=== PATIENT | male | born 1940 | race Caucasian/White ===

== ENCOUNTER → 2016-07-15 | Outpatient (CLI) | payer OTHER ==
--- NOTE | ~2016-07-15 | SLE ---
[facility] [address] [place] [address] POLYSOMNOGRAPHY STUDY Name: NORBERTO BRADEN Room #: REG TOYAEric Foster#: [id number] Admission: 07/15/16 Attend Phys: Elizabeth Ellis MD Discharge: Date of : 38 Report #: [id number] THIS REPORT FOR: //name// CC: Elizabeth Nova The patient with history of obstructive sleep apnea. In April 2012, was found to have an AHI of 30 events per sleep hour, CPAP intolerance, IPAP of 16 and EPAP of 9 was suggested. He has not been doing well with his BiPAP machine with AHI of 9.2 on IPAP of 20 and EPAP of 14. COMMENTS: The patient was titrated an IPAP of 14, EPAP of 8; IPAP of 15, EPAP of 9; IPAP of 16, EPAP of 10; IPAP of 17, EPAP of 10; IPAP of 18, EPAP of 11; IPAP of 19, EPAP of 11 with 1 liter oxygen. At an IPAP of 19, EPAP of 11 with 1 liter O2, the patient was seen for 29 minutes of which 27 minutes was in REM sleep. There were 6 hypopneas, apnea/hypopnea index of 12.3 events per hour, low sat of 75%. IMPRESSION: 1. History of obstructive sleep apnea, intolerant to CPAP, currently on IPAP of 20 and EPAP of 14. 2. Central apneas were noted during the night and may need to consider a BiPAP S/T or an AVAP. Occasional premature ventricular contraction noted. 3. BiPAP improved AHI; however, did not totally correct and an O2 was added. SUGGESTIONS: 1. The usual sleep apnea suggestions recommended. 2. The patient should be cautioned regarding the use of respiratory depressants. 3. Further evaluation of cough, which occurred throughout the night. 4. A BiPAP setting of IPAP of 20 and EPAP of 11 with 1 liter O2 is initially recommended. During our study, an Sandrine full face large mask was used with heated humidity. 5. Consider a nocturnal desaturation study, on settings. 6. Again, may need to consider a BiPAP S/T or an AVAP in future. <ELECTRONICALLY SIGNED> By: Elizabeth Ellis MD 08/01/16 [id number] Elizabeth Ellis MD /nt
== END ==
LOC: SLEEPLAB 09:30
DX: G47.33 Obstructive sleep apnea (adult) (pediatric) (principal)

== ENCOUNTER → 2016-09-23 | Outpatient (CLI) | payer OTHER | LOC: RAD 11:47 | DX: J90 Pleural effusion, not elsewhere classified (principal); G47.30 Sleep apnea, unspecified; R06.02 Shortness of breath; I51.7 Cardiomegaly; R91.8 Other nonspecific abnormal finding of lung field ==

== ENCOUNTER → 2016-10-04 | Outpatient (CLI) | payer OTHER ==
[2016-10-04 10:09] LABS: CREATININE 1.3 mg/dL (0.7-1.3)
== END ==
LOC: LAB 09:24
PROVIDERS: Internal Medicine Pulmonary Disease
DX: G47.33 Obstructive sleep apnea (adult) (pediatric) (principal); I25.10 Atherosclerotic heart disease of native coronary artery without angina pectoris; M25.78 Osteophyte, vertebrae; K44.9 Diaphragmatic hernia without obstruction or gangrene; K76.0 Fatty (change of) liver, not elsewhere classified

== ENCOUNTER → 2017-07-22 | Outpatient (CLI) | payer OTHER ==
[~2017-07-22] MED LIST: ALLEGRA ALLERGY60 MG PO; AMARYL4 MG PO; AMLODIPINE BESY10 MG PO; AUGMENTIN 500-1 EACH PO; CALCIUM MAGNES1 EAC2 PO; CARVEDILOL12.5 MG PO; COREG6.25 MG PO; FISH OIL 1,001000 M2 PO; IRBESARTAN150 MG PO; JARDIANCE10 MG PO; NORVASC10 MG PO; PLAVIX 75 MG TA75 M1 PO; SYNTHROID88 MCG PO; VITAMIN D1000 UNI2 PO; VITAMINC500 PO; ZOCOR20 MG PO
== END ==
LOC: CAT 09:51
DX: I25.10 Atherosclerotic heart disease of native coronary artery without angina pectoris (principal); J90 Pleural effusion, not elsewhere classified; J98.11 Atelectasis; I51.7 Cardiomegaly; R59.9 Enlarged lymph nodes, unspecified

== ENCOUNTER 2017-07-23 17:05 | Inpatient (IN) | payer OTHER ==
[~2017-07-23] VITALS: Ht 175.3 cm; Wt 84.8 kg
--- NOTE | ~2017-07-23 | HC ---
[facility] [place] [address] [place] [address] CONSULTATION Name: NORBERTO BRADEN JR Room #: 206-P [facility]..#: [id number] Admission: 07/23/17 Attend Phys: Ramon Linares Discharge: 08/02/17 Date of : 38 Report #: [id number] THIS REPORT FOR: //name// CC: Dr. Vickey Nova HISTORY OF PRESENT ILLNESS: This patient is seen in consultation regarding a worsening mild thrombocytopenia and now leukopenia and a mild normochromic normocytic anemia. This 77-year-old white male was admitted with complaints of worsening shortness of breath and the findings of a pleural effusion. He actually undergone a surgical procedure at [facility] last fall for idiopathic pleural effusions with no malignant pathology found at the time of thoracotomy with drainage and lung decortication. During that hospitalization, he was noted to be mildly thrombocytopenic at 115,000 with a white count of 4000. These are similar numbers that were seen on his hospitalization here on transfer. His platelets have not been associated with any untoward bleeding or bruising according to the patient's . He has been anemic in the past and received iron previously, he thinks several years ago. He has had no prior cancer diagnosis or treatment. He has no known exposure to radiation or known toxins. PAST MEDICAL HISTORY: Positive for coronary artery disease and is followed by Dr. Bingham. He has obstructive sleep apnea and is on home CPAP. ALLERGIES: None known. MEDICATIONS: As listed and include Plavix. SOCIAL HISTORY: He is a nonsmoker. FAMILY HISTORY: Negative for known hematologic malignancies. REVIEW OF SYSTEMS: Negative for sweats, chills, fevers or weight loss. He has no known adenopathy or masses. PHYSICAL EXAMINATION: GENERAL: Shows him to be alert. He is sitting up to chair, eating his lunch. Currently afebrile. NECK: Supple. CHEST: Showed decreased breath sounds in the bases. He has previous surgical incisions. CARDIOVASCULAR: Normal S1, S2. ABDOMEN: No organomegaly or mass. EXTREMITIES: No clubbing, cyanosis, edema. [facility] [address] [place] [address] CONSULTATION Name: NORBERTO BRADEN Room #: 206-P [facility] IN .R.#: [id number] Admission: 07/23/17 Attend Phys: Ramon Linares Discharge: 08/02/17 Date of : 38 Report #: [id number] NEUROLOGIC: No focal localizing signs. PSYCHIATRIC: Not agitated or confused. SKIN: Showed normal turgor. There is no evidence of petechiae. LABORATORY DATA: Inpatient labs and records were reviewed. Earlier PT was normal. ASSESSMENT AND PLAN: Worsening thrombocytopenia. PLAN: This may be related to current Lovenox, which I will discontinue and I have ordered a heparin antibody. Iron studies will be performed to evaluate his mild anemia and probable iron deficiency as well as a protein electrophoresis as his total protein is at the upper limits of normal. Obviously all needed medication should be avoided as it is possible they are contributing to this current change in his hemogram. He may also have an element of anemia of chronic disease and can pursue with an erythropoietin level. He currently is not in need of any transfused blood products at this time and would follow with repeat CBC in the morning. Thanks for allowing me to see him in consultation, asking me to participate in his care. <ELECTRONICALLY SIGNED> By: Elise Lu MD 08/15/17 1239 [id number] Elise Lu MD /nt
--- NOTE | ~2017-07-23 | 2DMMODE ---
[facility] [address] [place] [address] 2 D/M-MODE ECHOCARDIOGRAM Name: NORBERTO BRADEN Room #: 206-P [facility] IN ..#: [id number] Admission: 07/23/17 Attend Phys: Ramon Hwang Discharge: Date of : 36 Date of Service: 07/25/17 1108 Report #: [id number] THIS REPORT FOR: //name// APPROVED REPORT Study performed: 07/25/2017 09:12:39 EXAM: Comprehensive 2D, Doppler, and color-flow Echocardiogram Patient Location: Bedside Room #: 206 Status: routine BSA: 2.07 HR: 60 bpm BP: 130/66 mmHg Other Information Study Quality: Good Indications Congestive Heart Failure Diabetes Dyspnea CAD Hypertension/HDD 2D Dimensions RVDd: 42.76 mm LVEF(%): 68.42 (>50%) IVSd: 14.80 (7-11mm) LVOT Diam: 18.63 (18-24mm) LVDd: 46.58 mm PWd: 12.64 (7-11mm) Ascending Ao: 33.89 (22-36mm) LVDs: 28.79 (25-40mm) Aortic Root: 30.09 mm IVC: 24.00 mm Caballero's LVEF: 68.42 % Volumes Left Atrial Volume (Systole) Single Plane 4CH: 78.75 mL Single Plane 2CH: 110.30 mL LA ESV Index: 51.00 mL/m2 Aortic Valve AoV Peak Erik.: 3.44 m/s AO Peak Gr.: 47.28 mmHg LVOT Max P.37 mmHg AO Mean Gr.: 22.86 mmHg LVOT Mean P.91 mmHg AO V2 Mean: 2.23 m/s LVOT Max V: 1.61 m/s AO V2 VTI: 78.53 cm LVOT Mean V: 0.97 m/s [facility] [place] [address] 2 D/M-MODE ECHOCARDIOGRAM Name: NORBERTO BRADEN Room #: 206-P [facility] IN .R.#: [id number] Admission: 07/23/17 Attend Phys: Ramon Hwang Discharge: Date of : 38 Date of Service: 07/25/17 1108 Report #: [id number] EDUAR (VTI): 1.48 cm2 LVOT V1 VTI: 42.68 cm EDUAR Vmax: 1.28 cm2 SV (LVOT): 116.29 mL Mitral Valve E/A Ratio: 1.5 MV Decel. Time: 241.39 ms MV E Max Erik.: 1.58 m/s MV A Erik.: 1.07 m/s MV PHT: 70.00 ms IVRT: 62.28 ms Pulmonary Valve PV Peak Erik.: 1.13 m/s PV Peak Gr.: 5.15 mmHg Pulmonary Vein P Vein S: 0.43 m/s P Vein D: 0.65 m/s P Vein S/D Ratio: 0.66 Tricuspid Valve TR Peak Erik.: 3.40 m/s RAP Estimate: 15.00 mmHg TR Peak Gr.: 46.34 mmHg PA Pressure: 61.00 mmHg Left Ventricle The left ventricle is normal size. There is normal LV segmental wall motion. Mild concentric left ventricular hypertrophy. The left ventricular systolic function is normal. The left ventricular ejection fraction is within the normal range. LVEF is 55-60%. Transmitral Doppler flow pattern suggests restrictive physiology. Right Ventricle Right ventricle is dilated. The right ventricular systolic function is normal. Atria Left atrium is dilated. Right atrium is severely dilated. Aortic Valve Aortic valve is calcified. No aortic regurgitation is present. There is moderate valvular aortic stenosis. Calculated aortic valve area is 1.3 cm2 with maximum pressure gradient of 47 mmHg and mean pressure gradient of 23 mmHg. [facility] [address] [id number] 2 D/M-MODE ECHOCARDIOGRAM Name: NORBERTO BRADEN Room #: 206-P [facility] IN .R.#: [id number] Admission: 07/23/17 Attend Phys: Ramon Hwang Discharge: Date of : 38 Date of Service: 07/25/17 1108 Report #: [id number] Mitral Valve Moderate mitral annular calcification. Mild mitral regurgitation. No evidence of mitral valve stenosis. Tricuspid Valve The tricuspid valve is normal in structure. Moderate tricuspid regurgitation. PAP is estimated at 60 mmHg. Pulmonic Valve The pulmonary valve is normal in structure. Mild pulmonic regurgitation. Great Vessels The aortic root is normal in size. IVC is dilated and collapses <50% with inspiration. Pericardium There is no pericardial effusion. <Conclusion> The left ventricular systolic function is normal. There is normal LV segmental wall motion. LVEF is 55-60%. Both atria are dilated. Aortic valve is calcified, moderate valvular aortic stenosis. Calculated aortic valve area is 1.3 cm2 (maximum pressure gradient of 47 mmHgm, mean pressure gradient of 23 mmHg). Moderate mitral annular calcification. Mild mitral regurgitation. Moderate tricuspid regurgitation. Pulmonary artery pressure estimated at 60 mmHg. There is no pericardial effusion. <ELECTRONICALLY SIGNED> By: Alexi Hall MD, FACC 07/25/17 1108 1108 1108 Alexi Hall MD, FACC /INF
--- NOTE | ~2017-07-23 | D ---
[facility] [place] [address] [place] [address] DISCHARGE SUMMARY Name: NORBERTO BRADEN JR Room #: 206-P [facility] IN ..#: [id number] Admission: 07/23/17 Attend Phys: Ramon Linares Discharge: 08/02/17 Date of : 38 Report #: [id number] THIS REPORT FOR: //name// CC: Ramon Nova DATE OF SERVICE: 08/02/2017 HISTORY OF PRESENT ILLNESS: The patient is a 77-year-old male with complicated past medical history, including pulmonary hypertension, and pleural effusion few months ago, who came to the hospital with progressively worsening shortness of breath. The patient was found to be in respiratory failure, that felt to be multifactorial, including COPD, CHF with diastolic dysfunction, right heart failure, and bilateral pleural effusions. HOSPITALIZATION COURSE: The patient was hospitalized. Change Management Manager was consulted. The patient was initially treated with BiPAP. He was found to have bilateral pleural effusions. The patient had bilateral thoracentesis. Findings were consistent with exudate. He was treated with broad-spectrum antibiotics. The patient's condition slowly improved, and currently his oxygen requirement is 2 liters a day. The patient had cardiac echo, that showed normal ejection fraction, and pulmonary hypertension with pulmonary artery pressure of 47. The patient developed pancytopenia, that is mild. [employer] was consulted. This was felt to be multifactorial, including the patient being on Zosyn as well as Lovenox. Underlying iron deficiency is also a possibility. The patient had workup, result of which is pending. The patient did well on physical therapy. He will be discharged home on supplemental oxygen. Augmentin will be continued for 5 more days. DISCHARGE DIAGNOSES: 1. Acute on chronic respiratory failure, multifactorial, due to chronic obstructive pulmonary disease exacerbation, pneumonia, and bilateral pleural effusion. 2. Pleural effusion, exudate based on thoracentesis. 3. Pancytopenia, mild. Developed during the hospital stay. Multifactorial. Workup is pending. The patient will have followup with inspector elevators. 4. Diabetes mellitus type 2, stable on glimepiride. 5. Hypertension. 6. Obstructive sleep apnea. 7. Chronic obstructive pulmonary disease. 8. Pulmonary hypertension. [facility] [address] [place] [address] DISCHARGE SUMMARY Name: SAMPSONNORBERTO Room #: 206-P [facility] IN [facility].#: [id number] Admission: 07/23/17 Attend Phys: Ramon Linares Discharge: 08/02/17 Date of : 38 Report #: [id number] DISCHARGE MEDICATIONS: Please refer to medication reconciliation list. FOLLOWUP PLAN: 1. Follow up with office rn in 2 weeks as advised. 2. Follow up with inspector elevators in about 2 weeks. 3. Follow up with the primary care physician as planned. I spent more than 30 minutes to coordinate the patient's discharge from the hospital. <ELECTRONICALLY SIGNED> By: August Espinosa MD 08/03/17 0709 [id number] 1104 August Espinosa MD /marisol
--- NOTE | ~2017-07-23 | EKG ---
[address] [place] [address] ELECTROCARDIOGRAM REPORT Name: NORBERTO BRADEN Sabrina Room #: 206-P ADM IN M.R.#: [id number] Admission: 07/23/17 Attend Phys: Ramon Linares Discharge: Date of : 38 Report #: [id number] THIS REPORT FOR: //name// [facility] ED Test Date: 2017-07-23 Test Time: 17:32:17 Pat Name: NORBERTO BRADEN Department: Room: 206 Gender: M [employer] Associate: STEVO : 1940 Requested By: Virginia Le Order Number: [id number] MD: Alexi Hall Measurements Intervals [place] Rate: 79 P: 19 TX: 211 QRS: 33 QRSD: 98 T: 10 QT: 414 QTc: 475 Interpretive Statements Sinus rhythm No significant abnormality No previous ECG available for comparison Electronically Signed On 07-24-2017 11:28:04 [employer]PA[employer] by Alexi Hall [email or web address] <ELECTRONICALLY SIGNED> By: Alexi Hall MD, [facility] 07/24/17 1128 1732 1732 Alexi Hall MD, FACC /EPI
--- NOTE | ~2017-07-23 | HC ---
[facility] [address] [place] [address] CONSULTATION Name: NORBERTO BRADEN JR Room #: 206-P [facility] IN M.R.#: [id number] Admission: 07/23/17 Attend Phys: Ramon Linares Discharge: Date of : 38 Report #: [id number] THIS REPORT FOR: //name// CC: Ramon Nova REASON FOR CONSULTATION: Shortness of breath. HISTORY OF PRESENT ILLNESS: The patient is a 77-year-old gentleman who is typically followed through the [facility]. He has had what sounds like a complicated history including a history of collapsed lung with lung surgery at [facility]. He has a history of hypertension, diabetes and dyslipidemia. He is on home O2, which he uses on an as needed basis for when he becomes short of breath. Yesterday, he became more breathless. He has had a nonproductive cough. He has had occasional right leg swelling, which has resolved now after a single dose of furosemide. He denies orthopnea or paroxysmal nocturnal dyspnea. He denies fevers, chills or night sweats. No history of near syncope or syncope. ALLERGIES: No known drug allergies. MEDICATIONS: Simvastatin 20 mg daily, carvedilol 12.5 mg twice daily, glimepiride 4 mg daily, amlodipine 10 mg daily, Plavix 75 mg daily, Synthroid 88 mcg daily, Jardiance 10 mg daily, irbesartan 150 mg daily. PAST MEDICAL HISTORY: Medical records have been reviewed and include a history of prior lung surgery, diabetes, coronary artery disease without infarct, prior stenting, history of GI bleeding, dyslipidemia, hypothyroidism. SOCIAL HISTORY: He has never been a smoker. FAMILY HISTORY: Unremarkable for premature coronary disease. REVIEW OF SYSTEMS: All systems negative except as that noted above. PHYSICAL EXAMINATION: GENERAL: A pleasant gentleman in no distress. VITAL SIGNS: Blood pressure is 130/70, heart rate is 66 and regular. He is afebrile, 5 feet 9 inches tall, 200 pounds. HEENT: There are neither xanthelasma, subcutaneous xanthomata, oral mucosal or digital cyanosis or kyphoscoliosis present. CHEST: Reveals diminished breath sounds at both bases. CARDIOVASCULAR: Regular rate and rhythm with a harsh 3/6 systolic murmur at the left sternal border. ABDOMEN: Soft and nontender. EXTREMITIES: Without cyanosis, clubbing or edema. Radial pulses are 2+. NEUROLOGIC: He is alert with a nonfocal exam. [facility] [address] [place] [address] CONSULTATION Name: NORBERTO BRADEN Room #: 206-P [facility] IN .R.#: [id number] Admission: 07/23/17 Attend Phys: Ramon Linares Discharge: Date of : 38 Report #: [id number] LABORATORY DATA: Sodium 139, potassium 4.7, creatinine 1.8. ProBNP of 2146. Troponin 0. White count 4.6, hemoglobin 11, hematocrit 37, platelet count 126. Blood gas, pH 7.3, pCO2 of 50, pO2 of 51. Chest x-ray demonstrates bilateral lower lobe infiltrate. CT demonstrates bilateral dense atelectasis involving both lower lobes, chronic lung changes. IMPRESSION: 1. Hypoxemic respiratory failure; pulmonary infiltrates; predominantly right heart failure. 2. Coronary artery disease with prior stenting. 3. Hypertension. 4. Diabetes. 5. Dyslipidemia. RECOMMENDATIONS: 1. Echocardiogram with Doppler, which has been ordered. 2. Obtain records from outside hospital evaluations including [facility] and [facility]. 3. Volume status appears stable. I do not believe heart failure can explain his ongoing, severe hypoxemia. Thank you for asking me to participate in his care. <ELECTRONICALLY SIGNED> By: Alexi Hall MD, FACC 07/25/17 0907 0811 1329 Alexi Hall MD, FACC /nt
--- NOTE | ~2017-07-23 | HC ---
[facility] [place] [address] CONSULTATION Name: NORBERTO BRADEN JR Room #: 206-P [facility] IN M.R.#: [id number] Admission: 07/23/17 Attend Phys: Ramon Linares Discharge: Date of : 36 Report #: [id number] THIS REPORT FOR: //name// CC: Ramon Nova PULMONARY CONSULTATION PRIMARY PHYSICIAN: Arturo Nova MD REFERRAL PHYSICIAN: Ramon Linares MD REASON FOR REFERRAL: Hypoxia. HISTORY OF PRESENT ILLNESS: The patient is a 77-year-old white male who presents to the Emergency Room with progressive dyspnea and hypoxia. A Pulmonary consultation was requested. The patient is followed by Dr. Ellis in the office for sleep apnea. The patient states that he underwent chest surgery back in March 2017 for fluid in the left chest. He was told the fluid was complicated. He required thoracotomy. He was hospitalized at [facility]. Ever since the surgery, he has had mild dyspnea on exertion, requiring oxygen intermittently. He was in his usual state of health until about a week ago when he started developing increasing dyspnea on exertion. With worsening symptoms, he presented to the Emergency Room. He also notes increasing edema in the lower extremities over the past 1 week. Otherwise, denies any fever, night sweats or chills, chest pain or productive cough. Of note, the cause for his pleural effusion on the left back in March was felt to be unclear. The patient does not recall why he developed fluid in his chest. PAST MEDICAL HISTORY: He has coronary artery disease and is followed by Dr. Bingham. He has had previous multiple stents placed in the past. He does not recall ever being treated for heart failure. History of pleural effusion, undergone thoracotomy in the left chest in March 2017 at [facility]. Again, the cause was yet to be determined. History of obstructive sleep apnea for several years, on home CPAP. PAST SURGICAL HISTORY: As mentioned above. ALLERGIES: None to medications. HOME MEDICATIONS: Zocor, Coreg, Amena, Amaryl, amlodipine, Plavix, Synthroid, irbesartan, Jardiance, vitamin supplements, and fish oil supplements. [facility] [address] [place] [address] CONSULTATION Name: NORBERTO BRADEN Room #: 206-P [facility] IN M.R.#: [id number] Admission: 07/23/17 Attend Phys: Ramon Linares Discharge: Date of : 36 Report #: [id number] FAMILY HISTORY: Father of CVA with pneumonia. Mother , she had Alzheimer's along with myocardial infarction. SOCIAL HISTORY: Born and raised in [place]. He is . He does have a girlfriend. He has never smoked. He denies any alcohol use. He has worked primarily in the office setting. His girlfriend said to be without illness. He believes the cat may be sick, though it is unclear if it is serous or not. REVIEW OF SYSTEMS: As mentioned above. He has been relatively healthy until March of last year, then has mild dyspnea on exertion following a surgery and markedly asymptomatic since past week. Otherwise, a 10-point system review negative. PHYSICAL EXAMINATION: GENERAL: He is awake, alert, in no apparent distress. VITAL SIGNS: Temperature is 98 degrees Fahrenheit, pulse is 66, respiratory rate is 20, blood pressure 130/60 mmHg, saturation is 92% on FiO2 of 55%. HEENT: Normocephalic, atraumatic. NECK: Supple, without lymphadenopathy or thyromegaly. CHEST: Breath sounds are fair with decreased breath sounds in the bases. Few scattered crackles. No wheezes. CARDIOVASCULAR: Normal S1, S2. There are no obvious murmurs or gallop. Pulses are 2+/4+ bilaterally. ABDOMEN: Moderately distended, but no tenderness or masses. GENITOURINARY: Deferred. RECTAL: Deferred. EXTREMITIES: No cyanosis or clubbing. Minimal trace ankle edema. NEUROLOGIC: Grossly intact. LABORATORY DATA: CT chest was performed yesterday ordered by Dr. Ellis. This revealed bilateral pleural effusion, larger on the right than the left. Pleural effusion in the left appears to be mild, appears to be loculated. Pleural effusion on the right some parts appears to be loculated, but low portion may be still free flowing. No obvious infiltrates noted. BNP is 2100. Influenza A and B is negative. Arterial blood gas revealed pH 7.32, pCO2 of 50, pO2 of 51 on 4 liters of O2. Electrolytes: Sodium 139, potassium 4.7, chloride 104, CO2 of 28, BUN is 29, creatinine is 1.8. His creatinine in September 2016 was 1.3, albumin 3.9. WBC is 4600, hemoglobin 11.7, platelets are slightly reduced. No evidence of bandemia. Lymphopenia is noted, however. IMPRESSION: 1. Acute on chronic hypercapnic hypoxic respiratory failure in this 77-year-old white male. He has a history of pleural effusion in March 2017 undergone thoracotomy on the left. Pleural effusion is felt to be complicated. The CT chest performed yesterday showed now enlarging right-sided pleural effusion with some degree of loculation. Etiology of his pleural effusion is yet to be [address] [address] CONSULTATION Name: NORBERTO BRADEN JR Room #: 206-P [facility] IN [facility].#: [id number] Admission: 07/23/17 Attend Phys: Ramon Linares Discharge: Date of : 38 Report #: [id number] determined. The patient has been without any symptoms such as fever, cough, etc. Current cause of acute pulmonary impairment is related to enlarging right-sided pleural effusion, possible pneumonia. There is a questionable history of chronic obstructive pulmonary disease though patient has never smoked. Denies any past history of asthma. I am uncertain whether the patient has chronic lung disease. With profound hypoxia, pulmonary embolus considered though hypercapnia suggest that his respiratory impairment may be chronic, perhaps obesity hypoventilation syndrome or other forms of other processes. 2. Bilateral pleural effusion as mentioned above undergoing thoracotomy on the left now with moderate right-sided pleural effusion appears to be partially loculated. Would recommend thoracentesis in the morning. Again, the cause of the pleural effusion is yet to be determined. Would recommend obtaining records from [facility]. 3. Questionable infiltrates. CT chest, small compression atelectasis involving the right lower lobe. I do not think the patient had acute infectious process at this time, but will need to follow closely. 4. Obstructive sleep apnea, on home continuous positive airway pressure. 5. Hypercapnia, appears to be acute on chronic. Questionable the patient has underlying chronic lung disease or hypoventilation syndrome. 6. Acute kidney injury/chronic kidney disease. We will need to monitor renal function and urine output very closely. 7. Coronary artery disease with past history of stents. Echocardiogram has been ordered. Cardiology is following. 8. Recent lower extremity edema. Concur that patient likely has heart failure. He is being given diuretics. Edema has improved. Again, await echocardiogram study. RECOMMENDATION AND DISCUSSION: The patient is disproportionately hypoxic based on a CT chest though some of that may be due to acute onset of pleural effusion causing ventilation perfusion mismatch causing some degree of shunting. We will await echocardiogram. Continue diuresis. Follow closely for possible pneumonia though looks like the patient is currently on broad spectrum antibiotics. In terms of chronic obstructive lung disease, I do not think the patient has underlying COPD or asthma. Corticosteroids can be discontinued for now. Continue home CPAP use for now. Wean O2 for saturation 90%. Once stable, the patient will be also scheduled for thoracentesis of the right chest tomorrow if possible. DVT and GI prophylaxis will be addressed. The above findings were discussed in detail with the patient and his son. [address] [address] CONSULTATION Name: NORBERTO BRADEN JR Room #: 206-P [facility] IN M.R.#: [id number] Admission: 07/23/17 Attend Phys: Ramon Linares Discharge: Date of : 38 Report #: [id number] Thank you for this consultation. <ELECTRONICALLY SIGNED> By: Yousif Miranda MD 07/25/17 1236 1300 21 Yousif Miranda MD /nt
--- NOTE | ~2017-07-23 | CNG ---
[facility] [place] [address] CYTO-NONGYN REPORT PROCEDURE Name: NORBERTO BRADEN JR Room #: 206-P ADM IN M.R.#: [id number] Admission: 07/23/17 Date of : 36 Discharge: Report #: [id number] Path Case #: [id number] CYTOPATHOLOGY REPORT COLLECTION DATE: 07/29/2017 RECEIVED DATE: 07/29/2017 SUBMITTING PHYS: Dr. Elizabeth Ellis OTHER PHYS: Dr. Ramon Linares CLINICAL HISTORY: SOA SPECIMEN(S) RECEIVED: A.Pleural fluid, Right * * * * * * * * * * * * FINAL DIAGNOSIS: A. Right Pleural fluid: - No malignant epithelial cells identified. Predominantly lymphocytes and other inflammatory cells identified. PATHOLOGIST: Patti Brooks M.D. REPORT ELECTRONICALLY SIGNED BY: Patti Brooks M.D. DATE/TIME: 08/01/2017 15:01 * * * * * * * * * * * * GROSS PATHOLOGY: A. Pleural fluid, Right: The specimen is submitted unfixed, labeled "Norberto Braden Jr". Received by the Cytology Department is 30 mL of cloudy red fluid. One ThinPrep slide and a formalin fixed cell block were prepared. (lg2.) FLY FISHING GUIDE(S): DARBY Henderson(ASCP) INITIAL CPT CODE(S): A; 12806, 76629 Professional services performed by [facility] at [facility] [address], [place] [address] Technical services performed by [facility] at [address] [place] [address]., [address], [place] [address]. [facility] [address] [place] [address], [facility] [address] [place] [address] PHONE: [phone] [facility] [address] [place] [address] CYTO-NONGYN REPORT PROCEDURE Name: NORBERTO BRADEN Room #: 206-P ADM IN M.R.#: [id number] Admission: 07/23/17 Date of : 38 Discharge: Report #: [id number] Path Case #: [id number] DIRECTOR: Aquilino Rios M.D. * * * END OF REPORT * * *
--- NOTE | ~2017-07-23 | CNG ---
[facility] [place] [address] CYTO-NONGYN REPORT PROCEDURE Name: NORBERTO BRADEN JR Room #: 206-P ADM IN M.R.#: [id number] Admission: 07/23/17 Date of : 36 Discharge: Report #: [id number] Path Case #: [id number] CYTOPATHOLOGY REPORT COLLECTION DATE: 07/25/2017 RECEIVED DATE: 07/25/2017 SUBMITTING PHYS: Dr. Yousif Miranda OTHER PHYS: Dr. Ramon Nova CLINICAL HISTORY: SOA, CHF SPECIMEN(S) RECEIVED: A.Pleural fluid * * * * * * * * * * * * FINAL DIAGNOSIS: A. Pleural fluid: - No malignant cells identified. -Sparsely cellular specimen consisting of mesothelial cells, blood, and chronic inflammatory cells. Abundant lymphocytes present on cell block preparation. PATHOLOGIST: George Alston M.D. REPORT ELECTRONICALLY SIGNED BY: George Alston M.D. DATE/TIME: 07/26/2017 10:18 * * * * * * * * * * * * GROSS PATHOLOGY: A. Pleural fluid: The specimen is submitted unfixed, labeled "Karel Norberto Sabrina Miranda". Received by the Cytology Department is 20 mL of cloudy yellow fluid. One ThinPrep slide and a formalin fixed cell block were prepared. (lg2.) BIOPSYCHOLOGIST(S): DARBY So([facility]) INITIAL CPT CODE(S): A; 22826, 23985 Professional services performed by [facility] at [facility] [address] [address], [place] [address] Technical services performed by [facility] at [address] [place] [address]., [address], [place] [address]. [facility] [address] [place] [address], [address] [facility] [address] [place] [address] CYTO-NONGYN REPORT PROCEDURE Name: NORBERTO BRADEN Room #: 206-P ADM IN M.R.#: [id number] Admission: 07/23/17 Date of : 38 Discharge: Report #: [id number] Path Case #: [id number] [place] [address] PHONE: [phone] DIRECTOR: Aquilino Rios M.D. * * * END OF REPORT * * *
[2017-07-23 17:16] VITALS: BP 162/76
[2017-07-23 17:27] LABS: HEMATOCRIT 37.3 % (42.0-52.0); HEMOGLOBIN 11.7 gm/dL (14.0-18.0); MCH 26.4 pg (26.0-34.0); MCHC 31.5 g/dL (28.0-37.0); MCV 83.7 fL (80.0-100.0); PLATELET COUNT 126 thou/uL (150-400); RBC 4.45 mil/uL (4.50-6.00); RDW 20.2 % (10.5-14.5); WBC 4.6 thou/uL (4.0-11.0)
[2017-07-23 17:29] LABS: BE(vivo) -1.3 mmol/L (-2 to +3); HCO3 25.3 mmol/L (22.0-26.0); PCO2 50.1 mmHg (35.0-45.0); PO2 51.8 mmHg (80.0-100.0); pH 7.321 (7.360-7.450); sO2 83.5 % (92.0-98.0)
[2017-07-23] MEDS ORDERED: CARVEDILOL12.5 MG PO (17:32)
[2017-07-23] MEDS ORDERED: ZOCOR20 MG PO (17:32)
[2017-07-23] MEDS ORDERED: AMLODIPINE BESY10 MG PO (17:33)
[2017-07-23] MEDS ORDERED: ALLEGRA ALLERGY60 MG PO (17:33)
[2017-07-23] MEDS ORDERED: PLAVIX 75 MG TA75 M1 PO (17:33)
[2017-07-23] MEDS ORDERED: AMARYL4 MG PO (17:33)
[2017-07-23] MEDS ORDERED: SYNTHROID88 MCG PO (17:33)
[2017-07-23] MEDS ORDERED: JARDIANCE10 MG PO (17:34)
[2017-07-23] MEDS ORDERED: IRBESARTAN150 MG PO (17:34)
[2017-07-23] MEDS ORDERED: FISH OIL 1,001000 M2 PO (17:35)
[2017-07-23] MEDS ORDERED: CALCIUM MAGNES1 EAC2 PO (17:35)
[2017-07-23] MEDS ORDERED: VITAMIN D1000 UNI2 PO (17:35)
[2017-07-23] MEDS ORDERED: VITAMINC500 PO (17:35)
[2017-07-23 17:36] LABS: ANION GAP 7 mmol/L (7-16); BUN 29 mg/dL (7-18); CALCIUM 9.5 mg/dL (8.5-10.1); CHLORIDE 104 mmol/L (98-107); CO2 28 mmol/L (21-32); CREATININE 1.8 mg/dL (0.7-1.3); GLUCOSE 208 mg/dL (74-106); POTASSIUM 4.7 mmol/L (3.5-5.1); SODIUM 139 mmol/L (136-145)
[2017-07-23 17:44] LABS: ALBUMIN 3.9 g/dL (3.4-5.0); SGOT 35 U/L (15-37); SGPT 37 U/L (30-65); TOTAL BILIRUBIN 1.3 mg/dL (<0.1-1.0); TOTAL PROTEIN 8.2 g/dL (6.4-8.2); TROPONIN-I < 0.04 ng/mL (<0.06)
[2017-07-23 17:51] LABS: ABSOLUTE NEUTROPHILS 3.5 thou/uL (1.4-8.2); ANISOCYTOSIS 1+
[2017-07-23 17:53] LABS: INR 1.2; PROTIME 11.9 Seconds (9.3-11.4)
[2017-07-23 18:10] VITALS: BP 145/61
[2017-07-23 19:40] VITALS: BP 158/60
[2017-07-23 20:06] VITALS: BP 150/75
[2017-07-23 23:33] VITALS: BP 137/61
[2017-07-24 05:06] VITALS: BP 130/73
[2017-07-24 07:20] VITALS: BP 132/59
[2017-07-24 07:35] VITALS: BP 113/45
[2017-07-24 11:25] VITALS: BP 141/70
[2017-07-24 14:48] LABS: APTT 29.7 Seconds (24.5-32.8); INR 1.2; PROTIME 12.3 Seconds (9.3-11.4)
[2017-07-24 16:20] VITALS: BP 135/60
[2017-07-24 20:46] VITALS: BP 124/57
[2017-07-25 03:54] LABS: HEMATOCRIT 34.3 % (42.0-52.0); HEMOGLOBIN 10.9 gm/dL (14.0-18.0); MCH 26.2 pg (26.0-34.0); MCHC 31.7 g/dL (28.0-37.0); MCV 82.5 fL (80.0-100.0); RBC 4.16 mil/uL (4.50-6.00); RDW 20.3 % (10.5-14.5); WBC 4.3 thou/uL (4.0-11.0)
[2017-07-25 03:58] LABS: ALBUMIN 3.3 g/dL (3.4-5.0); CALCIUM 8.8 mg/dL (8.5-10.1); CREATININE 1.7 mg/dL (0.7-1.3); PHOSPHORUS 4.5 mg/dL (2.5-4.9); POTASSIUM 4.4 mmol/L (3.5-5.1)
[2017-07-25 05:13] VITALS: BP 130/66
[2017-07-25 06:56] LABS: BE(vivo) 1.3 mmol/L (-2 to +3); HCO3 25.9 mmol/L (22.0-26.0); PCO2 40.8 mmHg (35.0-45.0); PO2 60.2 mmHg (80.0-100.0); sO2 91.6 % (92.0-98.0)
[2017-07-25 08:00] VITALS: BP 129/64
[2017-07-25 12:00] VITALS: BP 140/66
[2017-07-25 12:39] LABS: BF NUCLEATED CELLS 913; BF RBC 4748
[2017-07-25 12:41] LABS: CLARITY SLIGHTLY CLOUDY; COLOR YELLOW; TOTAL VOLUME 55 mL
[2017-07-25 12:42] LABS: SOURCE RIGHT CHEST
[2017-07-25 13:08] LABS: SOURCE THORACENTESIS
[2017-07-25 13:09] LABS: SOURCE THORACENTESIS
[2017-07-25 13:58] LABS: BF NEUTROPHILS 0
[2017-07-25 13:59] LABS: BF MACROPHAGE 3
[2017-07-25 16:00] VITALS: BP 118/58
[2017-07-25 19:55] VITALS: BP 138/77
[2017-07-26 04:45] VITALS: BP 123/65
[2017-07-26 07:45] VITALS: BP 131/66
[2017-07-26 11:25] VITALS: BP 135/34
[2017-07-26 15:30] VITALS: BP 127/56
[2017-07-26 19:50] VITALS: BP 124/56
[2017-07-26 23:11] LABS: BODY FLUID ALBUMIN 2.5 g/dL (()); BODY FLUID LDH 105 IU/L (())
[2017-07-27 04:29] VITALS: BP 127/53
[2017-07-27 07:30] VITALS: BP 130/53
[2017-07-27 10:28] LABS: HEMATOCRIT 36.9 % (42.0-52.0); HEMOGLOBIN 11.5 gm/dL (14.0-18.0); MCH 25.8 pg (26.0-34.0); MCHC 31.2 g/dL (28.0-37.0); MCV 82.6 fL (80.0-100.0); RBC 4.46 mil/uL (4.50-6.00); RDW 19.6 % (10.5-14.5)
[2017-07-27 10:36] LABS: CALCIUM 8.9 mg/dL (8.5-10.1); CREATININE 1.5 mg/dL (0.7-1.3); POTASSIUM 4.4 mmol/L (3.5-5.1)
[2017-07-27 11:10] VITALS: BP 127/47
[2017-07-27 11:49] LABS: BE(vivo) 2.8 mmol/L (-2 to +3); HCO3 28.4 mmol/L (22.0-26.0); PCO2 47.7 mmHg (35.0-45.0); PO2 57.9 mmHg (80.0-100.0); pH 7.393 (7.360-7.450); sO2 89.7 % (92.0-98.0)
[2017-07-27 15:20] VITALS: BP 118/68
[2017-07-27 20:12] VITALS: BP 127/80
[2017-07-27 23:20] VITALS: BP 125/59
[2017-07-28 04:46] VITALS: BP 133/64
[2017-07-28 07:45] VITALS: BP 118/61
[2017-07-28 11:35] VITALS: BP 126/52
[2017-07-28 15:40] VITALS: BP 126/61
[2017-07-28 19:57] VITALS: BP 123/47
[2017-07-29 05:00] VITALS: BP 150/67
[2017-07-29 07:41] VITALS: BP 132/67
[2017-07-29 09:48] LABS: CLARITY TURBID; COLOR RED; SOURCE RIGHT CHEST; TOTAL VOLUME 60 mL
[2017-07-29 09:52] LABS: SOURCE RIGHT CHEST
[2017-07-29 10:15] LABS: BF NUCLEATED CELLS 1659; BF RBC 198567
[2017-07-29 10:53] LABS: BF MACROPHAGE 0; BF NEUTROPHILS 0
[2017-07-29 15:18] VITALS: BP 117/48
[2017-07-29 19:32] VITALS: BP 127/65
[2017-07-30 05:44] VITALS: BP 152/67
[2017-07-30 05:54] LABS: HEMATOCRIT 38.2 % (42.0-52.0); HEMOGLOBIN 12.3 gm/dL (14.0-18.0); MCH 26.1 pg (26.0-34.0); MCHC 32.1 g/dL (28.0-37.0); MCV 81.3 fL (80.0-100.0); RBC 4.71 mil/uL (4.50-6.00); RDW 18.9 % (10.5-14.5); WBC 2.3 thou/uL (4.0-11.0)
[2017-07-30 06:06] LABS: CALCIUM 9.7 mg/dL (8.5-10.1); CREATININE 1.3 mg/dL (0.7-1.3); POTASSIUM 3.7 mmol/L (3.5-5.1)
[2017-07-30 08:00] VITALS: BP 136/67
[2017-07-30 11:44] VITALS: BP 110/60
[2017-07-30 15:08] LABS: BODY FLUID ALBUMIN 2.5 g/dL (()); BODY FLUID AMYLASE 25 U/L (()); BODY FLUID GLUCOSE 96 mg/dL (()); BODY FLUID LDH 184 IU/L (()); BODY FLUID PROTEIN 4.1 g/dL (())
[2017-07-30 15:44] VITALS: BP 127/87
[2017-07-30 19:55] VITALS: BP 128/49
[2017-07-30 23:53] VITALS: BP 123/65
[2017-07-31 04:56] VITALS: BP 126/89
[2017-07-31 07:30] LABS: HEMOGLOBIN 10.7 gm/dL (14.0-18.0); MCHC 32.4 g/dL (28.0-37.0); MCV 80.3 fL (80.0-100.0); RBC 4.11 mil/uL (4.50-6.00); RDW 18.9 % (10.5-14.5); WBC 2.3 thou/uL (4.0-11.0)
[2017-07-31 07:39] LABS: CALCIUM 9.2 mg/dL (8.5-10.1); CREATININE 1.3 mg/dL (0.7-1.3)
[2017-07-31 08:39] VITALS: BP 156/70
[2017-07-31 09:05] LABS: ANISOCYTOSIS 2+
[2017-07-31 09:30] LABS: PLATELET COUNT 79 thou/uL (150-400)
[2017-07-31 10:28] LABS: ALBUMIN 3.4 g/dL (3.4-5.0); DIRECT BILIRUBIN 0.3 mg/dL (<0.1-0.3); TOTAL BILIRUBIN 0.9 mg/dL (<0.1-1.0); TOTAL PROTEIN 7.1 g/dL (6.4-8.2)
[2017-07-31 17:00] VITALS: BP 106/81
[2017-07-31 19:55] VITALS: BP 116/50
[2017-08-01 03:28] VITALS: BP 122/57
[2017-08-01 05:13] LABS: HEMATOCRIT 32.9 % (42.0-52.0); HEMOGLOBIN 10.5 gm/dL (14.0-18.0); MCH 25.9 pg (26.0-34.0); MCV 80.9 fL (80.0-100.0); RBC 4.07 mil/uL (4.50-6.00); RDW 18.5 % (10.5-14.5)
[2017-08-01 07:55] VITALS: BP 110/45
[2017-08-01 11:12] VITALS: BP 133/51
[2017-08-01 13:40] LABS: ABSOLUTE RETIC COUNT 0.0452 10^6/uL; OBSERVED RETIC COUNT 1.02 % (0.6-2.6)
[2017-08-01 13:55] LABS: APTT 25.7 Seconds (24.5-32.8); FIBRINOGEN 427.9 mg/dL (210-360); INR 1.1
[2017-08-01 13:57] LABS: % SATURATION 10 % (20-39); IRON 26 ug/dL (65-175); TIBC 251 ug/dL (250-450)
[2017-08-01 19:52] VITALS: BP 122/53
[2017-08-01 20:08] LABS: IgA 395 mg/dL (61-437); IgG 1339 mg/dL (700-1600); IgM 43 mg/dL (15-143)
[2017-08-02 03:37] LABS: HEMATOCRIT 33.8 % (42.0-52.0); HEMOGLOBIN 10.9 gm/dL (14.0-18.0); MCH 25.9 pg (26.0-34.0); MCHC 32.1 g/dL (28.0-37.0); MCV 80.6 fL (80.0-100.0); RBC 4.2 mil/uL (4.50-6.00); RDW 18.1 % (10.5-14.5)
[2017-08-02 04:02] VITALS: BP 129/61
[2017-08-02] MEDS ORDERED: AUGMENTIN 500-1 EACH PO (09:40)
[2017-08-02] MEDS ORDERED: COREG6.25 MG PO (09:40)
[2017-08-02] MEDS ORDERED: NORVASC10 MG PO (09:40)
[2017-08-02 10:06] VITALS: BP 129/61
[2017-08-03 15:12] LABS: GLOBULIN TOTAL 3.3 g/dL (2.2-3.9); M-SPIKE Not Observed g/dL (Not Observed)
== END 2017-08-02 14:45 | disposition home or self-care (01) | DRG 291 ==
LOC: ER 17:05 → 2N 17:54 → EROBS 17:54 → 2N 18:23 → ENTRNSPT 08-02 14:34 → EDTRNSPTSTS 08-02 14:43 → 2N 08-02 14:45
PROVIDERS: Hospitalist; Internal Medicine; Internal Medicine Hematology & Oncology; Internal Medicine Pulmonary Disease; Nurse Practitioner Family
PROC: 0W993ZX Drainage of Right Pleural Cavity, Percutaneous Approach, Diagnostic (ICD-10-PCS; principal; 2017-07-25)
PROC: B24BZZ4 Ultrasonography of Heart with Aorta, Transesophageal (ICD-10-PCS; principal; 2017-07-25)
PROC: 5A09557 Assistance with Respiratory Ventilation, Greater than 96 Consecutive Hours, Continuous Positive Airway Pressure (ICD-10-PCS; 2017-07-27)
PROC: 0W993ZX Drainage of Right Pleural Cavity, Percutaneous Approach, Diagnostic (ICD-10-PCS; 2017-07-29)
DX: I13.0 Hypertensive heart and chronic kidney disease with heart failure and stage 1 through stage 4 chronic kidney disease, or unspecified chronic kidney disease (principal); J96.21 Acute and chronic respiratory failure with hypoxia; J18.9 Pneumonia, unspecified organism; I50.31 Acute diastolic (congestive) heart failure; J96.22 Acute and chronic respiratory failure with hypercapnia; N17.9 Acute kidney failure, unspecified; J44.1 Chronic obstructive pulmonary disease with (acute) exacerbation; J90 Pleural effusion, not elsewhere classified; D61.818 Other pancytopenia; N18.9 Chronic kidney disease, unspecified; E11.22 Type 2 diabetes mellitus with diabetic chronic kidney disease; I25.10 Atherosclerotic heart disease of native coronary artery without angina pectoris; E03.9 Hypothyroidism, unspecified; E78.5 Hyperlipidemia, unspecified; I27.20 Pulmonary hypertension, unspecified; R01.1 Cardiac murmur, unspecified; I08.0 Rheumatic disorders of both mitral and aortic valves; G47.33 Obstructive sleep apnea (adult) (pediatric); Z79.02 Long term (current) use of antithrombotics/antiplatelets; Z79.899 Other long term (current) drug therapy; Z99.81 Dependence on supplemental oxygen; Z95.5 Presence of coronary angioplasty implant and graft; Z82.3 Family history of stroke; Z83.6 Family history of other diseases of the respiratory system; Z82.0 Family history of epilepsy and other diseases of the nervous system; Z82.49 Family history of ischemic heart disease and other diseases of the circulatory system
CPT/HCPCS: 10081

== ENCOUNTER → 2017-08-19 | Outpatient (CLI) | payer OTHER | LOC: RAD 10:13 | DX: R06.00 Dyspnea, unspecified (principal); J90 Pleural effusion, not elsewhere classified ==

== ENCOUNTER → 2017-09-15 | Outpatient (CLI) | payer OTHER ==
[2017-09-15 09:40] LABS: CALCIUM 9.3 mg/dL (8.5-10.1); CREATININE 1.3 mg/dL (0.7-1.3); POTASSIUM 4.5 mmol/L (3.5-5.1)
== END ==
LOC: RAD 08:59
PROVIDERS: Internal Medicine Pulmonary Disease
DX: I27.20 Pulmonary hypertension, unspecified (principal); J44.9 Chronic obstructive pulmonary disease, unspecified

== ENCOUNTER → 2018-09-19 | Outpatient (CLI) | payer OTHER | LOC: RAD 11:47 | DX: J84.9 Interstitial pulmonary disease, unspecified (principal); J98.4 Other disorders of lung ==

== ENCOUNTER 2019-03-03 18:45 | Emergency (ER) | payer OTHER ==
[~2019-03-03] VITALS: Ht 256.5 cm; Wt 67.1 kg
[2019-03-03 19:07] LABS: URINE BILIRUBIN NEGATIVE (Negative); URINE BLOOD 3+ (Negative); URINE CLARITY CLOUDY; URINE COLOR YELLOW; URINE GLUCOSE-RANDOM* NEGATIVE (Negative); URINE KETONES NEGATIVE (Negative); URINE LEUKOCYTES 2+ (Negative); URINE NITRITE NEGATIVE (Negative); URINE PROTEIN (DIPSTICK) 2+ (Negative); URINE SPECIFIC GRAVITY 1.025 (1.005-1.035); URINE UROBILINOGEN 0.2 E.U./dl (0.2-1.0)
[2019-03-03 19:09] LABS: ABSOLUTE NEUTROPHILS 8.2 thou/uL (1.4-8.2); BASOPHILS 0.4 % (0.0-2.0); EOSINOPHILS 2.5 % (0.0-3.0); HEMATOCRIT 30.3 % (42.0-52.0); HEMOGLOBIN 9.6 gm/dL (14.0-18.0); LYMPHOCYTES 11.3 % (24.0-44.0); MCH 25.9 pg (26.0-34.0); MCHC 31.7 g/dL (28.0-37.0); MCV 81.8 fL (80.0-100.0); PLATELET COUNT 86 thou/uL (150-400); POLYS 78.8 % (36.0-66.0); RDW 19.2 % (10.5-14.5); WBC 10.4 thou/uL (4.0-11.0)
[2019-03-03] MEDS ORDERED: DIFLUCAN200 MG PO (19:10)
[2019-03-03] MEDS ORDERED: FLOMAX0.4 MG PO (19:11)
[2019-03-03 19:12] LABS: CALCIUM 9.7 mg/dL (8.5-10.1); CREATININE 1.8 mg/dL (0.7-1.3); POTASSIUM 4.9 mmol/L (3.5-5.1)
[2019-03-03 19:13] LABS: BACTERIA >30 Many /HPF (None Seen); CASTS None Seen /LPF (None Seen); CRYSTALS None Seen /LPF (None Seen); SQUAMOUS 0-3 Few /LPF (0-3); URINE RBC >20 Many /HPF (0-2); URINE WBC >25 Many /HPF (0-5); YEAST Present (None Seen)
[2019-03-03] MEDS ORDERED: CEFTRIAXONE40 MG/M1 IM (19:14)
[2019-03-03] MEDS ORDERED: FINASTERIDE5 MG PO (19:15)
[2019-03-03 19:19] LABS: ALBUMIN 2.8 g/dL (3.4-5.0); TOTAL BILIRUBIN 0.9 mg/dL (<0.1-1.0); TOTAL PROTEIN 9.1 g/dL (6.4-8.2)
[2019-03-03 20:03] LABS: PLATELET ESTIMATE SLIGHTLY DECREASED
[2019-03-03 20:04] LABS: ANISOCYTOSIS 1+; LARGE PLATELETS FEW
[2019-03-03 23:40] VITALS: BP 125/52
--- NOTE | 2019-03-04 14:28 | EKG ---
[place] [address] [facility] [place] [address] ELECTROCARDIOGRAM REPORT Name: NORBERTO BRADEN [id number] ������������������ Admission: 03/03/19 ������������������ Attend Phys: Discharge: 03/03/19 ������������������ Date of : 36 Report #: [id number] ����������������������������������������������������������������� [id number] THIS REPORT FOR: //name// [facility] ED Test Date: 2019-03-03 Test Time: 19:41:53 Pat Name: NORBERTO BRADEN Department: Room: Gender: [employer]: [place] : 1940 Requested By: George Baez Order Number: [id number] MD: Alexi Hall Measurements Intervals Williams Rate: 101 P: -45 HI: 190 QRS: 32 QRSD: 91 T: 4 QT: 352 QTc: 457 Interpretive Statements Sinus tachycardia Atrial premature complexes Borderline T abnormalities, inferior leads Compared to ECG 07/23/2017 17:32:17 Atrial premature complex(es) now present Electronically Signed On 03-04-2019 14:28:24 CDT by Alexi Hall [email or web address] ��������������������������������������������� <ELECTRONICALLY SIGNED> ���������������������������������������� By: Alexi Hall MD, [facility] ��������������������������������������������� 03/04/19 1428 40 40 Alexi Hall MD, FACC /EPI
== END 2019-03-03 23:40 | disposition short-term general hospital (02) ==
LOC: ER 18:45
PROVIDERS: Emergency Medicine
DX: I95.9 Hypotension, unspecified (principal); N12 Tubulo-interstitial nephritis, not specified as acute or chronic; N17.9 Acute kidney failure, unspecified; E11.9 Type 2 diabetes mellitus without complications; I11.0 Hypertensive heart disease with heart failure; I50.9 Heart failure, unspecified; Z95.5 Presence of coronary angioplasty implant and graft; Z90.89 Acquired absence of other organs

== ENCOUNTER 2019-05-01 14:26 | Emergency (ER) | payer OTHER ==
[~2019-05-01] VITALS: Ht 175.3 cm; Wt 68.0 kg
[~2019-05-01 14:26] MED LIST changes: +CEFTRIAXONE40 MG/M1 IM; +DIFLUCAN200 MG PO; +FINASTERIDE5 MG PO; +FLOMAX0.4 MG PO
[2019-05-01 16:38] VITALS: BP 132/67
== END 2019-05-01 16:39 | disposition home or self-care (01) ==
LOC: ER 14:26
DX: S91.115A Laceration without foreign body of left lesser toe(s) without damage to nail, initial encounter (principal); E11.9 Type 2 diabetes mellitus without complications; I11.0 Hypertensive heart disease with heart failure; I50.9 Heart failure, unspecified; Z90.89 Acquired absence of other organs; W22.8XXA Striking against or struck by other objects, initial encounter; Y92.89 Other specified places as the place of occurrence of the external cause; Y93.89 Activity, other specified; Y99.8 Other external cause status